=== PATIENT | female | born 1970 ===

== ENCOUNTER 2017-05-11 19:47 | Emergency (ER) | payer MEDICAID ==
[2017-05-11 20:21] VITALS: O2SAT 98; BMI 39.0
[2017-05-11] MEDS ORDERED: Sodium Chloride 0.9% 1,000 ML IV STA (20:41)
--- NOTE | 2017-05-11 20:44 | ED PDOC ---
Arrival/HPI - General Chief Complaint: Flu-like Symptoms Time Seen by Provider: 05/11/17 20:03 Historian: Patient, Family - History of Present Illness Narrative History of Present Illness (Text): you were treated in the ED today for sinus congestion, dry cough, body aches, fever, chills, but otherwise without any nausea/vomiting/headache/dizziness/ difficulty breathing/chest pain/abdomen pain/numbness/tingling/loss of limb function/pain with urination. 05/11/17 22:38 05/11/17 22:40 Time/Duration: Other (6 days) Symptom Onset: Gradual Symptom Course: Unchanged Quality: Aching Severity Level: 2 Activities at Onset: Rest Context: Sitting Past Medical History - Provider Review Nursing Documentation Reviewed: Yes - Travel History Have you recently traveled outside [place] w/in the past 3 mons?: No - Cardiac Hx Cardiac Disorders: No - Pulmonary Hx Respiratory Disorders: Yes Hx Asthma: Yes - Neurological Hx Neurological Disorder: No - HEENT Hx HEENT Disorder: No - Renal Hx Renal Disorder: No - Endocrine/Metabolic Hx Endocrine Disorders: No - Hematological/Oncological Hx Blood Disorders: Yes Hx Anemia: Yes - Integumentary Hx Dermatological Disorder: No - Musculoskeletal/Rheumatological Hx Musculoskeletal Disorders: No - Gastrointestinal Hx Gastrointestinal Disorders: Yes Other/Comment: gastric sleeve sx - Genitourinary/Gynecological Hx Genitourinary Disorders: No - Psychiatric Hx Psychophysiologic Disorder: No Hx Substance Use: No - Surgical History Hx Gastric Bypass Surgery: Yes Family/Social History - Physician Review Nursing Documentation Reviewed: Yes Family/Social History: No Known Family HX Smoking Status: Never Smoked Hx Alcohol Use: No Hx Substance Use: No Allergies/Home Meds Allergies/Adverse Reactions: Allergies iodine Allergy (Verified 05/11/17 20:38) RASH Home Medications: Home Meds Medication Instructions Recorded Confirmed Albuterol 0.083% [Albuterol 3 ml IH PRN PRN 05/11/17 05/11/17 Sulfate 3 Ml] Albuterol HFA [Ventolin HFA 90 2 puff IH [id number] PRN 05/11/17 05/11/17 mcg/actuation (8 g)] Review of Systems - Review of Systems Constitutional: Fevers Eyes: Normal ENT: Rhinorrhea Respiratory: Cough Cardiovascular: Normal Gastrointestinal: Normal Genitourinary Female: Normal Musculoskeletal: Normal Skin: Normal Neurological: Normal Endocrine: Normal Hemo/Lymphatic: Normal Psychiatric: Normal Physical Exam Vital Signs Reviewed: Yes Vital Signs Temp Pulse Resp BP Pulse Ox 05/11/17 22:55 99.4 F 92 H 18 130/72 98 05/11/17 20:52 103 F H 05/11/17 20:13 103.0 F H 106 H 22 147/100 H 98 Temperature: Febrile Blood Pressure: Hypertensive Pulse: Tachycardic Respiratory Rate: Normal Appearance: Positive for: Well-Appearing, Non-Toxic, Comfortable Pain Distress: None Mental Status: Positive for: Alert and Oriented X 3 - Systems Exam Head: Present: Atraumatic, Normocephalic Pupils: Present: PERRL Extroacular Muscles: Present: EOMI Conjunctiva: Present: Normal Ears: Present: Normal Mouth: Present: Moist Mucous Membranes Pharnyx: Present: Normal Nose (External): Present: Atraumatic Nose (Internal): Present: Boggy Neck: Present: Normal Range of Motion Respiratory/Chest: Present: Clear to Auscultation, Good Air Exchange Cardiovascular: Present: Regular Rate and Rhythm Abdomen: No: Tenderness, Distention, Normal Bowel Sounds, Peritoneal Signs, Rebound, Guarding, McBurney's Point Tender, Rovsing's Sign Present, Hernias, Feeding Tubes, Ostomy Tubes, Mass/Organomegaly, Scars, Other Back: Present: Normal Inspection Upper Extremity: Present: Normal Inspection Lower Extremity: Present: Normal Inspection Neurological: Present: GCS=15, CN II-XII Intact, Speech Normal, Motor Func Grossly Intact Skin: Present: Warm, Normal Color Psychiatric: Present: Alert, Oriented x 3, Normal Insight, Normal Concentration Medical Decision Making ED Course and Treatment: you were treated in the ED today for sinus congestion, dry cough, body aches, fever, chills, but otherwise without any nausea/vomiting/headache/dizziness/ difficulty breathing/chest pain/abdomen pain/numbness/tingling/loss of limb function/pain with urination. You were otherwise breathing easily, pink moist lips, smiling and talking with your family easily, good strength/sensation, alert/oriented, walking easily, clear lungs, no abdomen tenderness, pink lips, fever temp 103 and repeat 99.4, initially fast heart rate 106 and repeat 92, stable breathing rate 22 and repeat 18, excellent oxygen level 98% room air, elevated blood pressure 147/100 which we recommend repeat in 2-3 days primary care office to determine further treatment, you have blood tests no infection count 5.8, stable blood level hemoglobin 11/platelets 281, stable chemistry, heart blood test negative, urine test trace sign of infection without pain with urination thus followup with primary care 2-days to get final urine culture to determine further treatment, urine test negative, radiology chest xray mild markings, ECG mildly fast, intravenous fluids, tylenol, toradol, tamiflu done in the ED with improvement, counselled to drink lots of fluids and monitor urine output and thus discharged home with family. 1. Recommend tamiflu as directed for flu infection control. if persistent cough and change in color of sputum start azithromycin as directed for infection control. 2. Recommend tylenol or motrin as directed for fever control. 3. Recommend follow-up primary care 2-3 days to review symptoms, get final urine cultures to determine further treatment, referral to urology for protein in urine to ensure no complications. 4. If any worsening pain, fever, chills, nausea, vomiting, difficulty breathing , numbness, loss of limb function, pain with urination or any medical condition then return to the ED. 05/11/17 22:43 05/11/17 22:44 05/11/17 23:02 05/11/17 23:04 05/11/17 23:09 Reassessment Condition: Re-examined, Improved - Lab Interpretations Lab Results: 05/11/17 20:40 05/11/17 20:40 Lab Results 05/11/17 21:27: Urine Color Light red, Urine Appearance Sl cloudy, Urine pH 6.5 , Ur Specific [place] <= 1.005, Urine Protein 30 H, Urine Glucose (UA) Negative , Urine Ketones 15 H, Urine Blood Large H, Urine Nitrate Negative, Urine Bilirubin Negative, Urine Urobilinogen 0.2, Ur Leukocyte Esterase Trace H, Urine RBC 25 - 30, Urine WBC 2 - 5, Ur Epithelial Cells 6 - 8, Urine Bacteria Mod, Urine Other Uyeast 05/11/17 20:56: Influenza Typ A,B (EIA) Pos for influenza b H 05/11/17 20:40: Sodium 139, Potassium 3.6, Chloride 104, Carbon Dioxide 22, Anion Gap 17, BUN 6 L, Creatinine 0.8, Est GFR ( Amer) > 60, Est GFR (Non -Af Amer) > 60, Random Glucose 107, Calcium 9.5, Magnesium 1.8, Total Bilirubin 0.3, AST 64 H, ALT 39, Alkaline Phosphatase 90, Lactate Dehydrogenase 543, Total Creatine Kinase 875 H, CK-MB (CK-2) 0.4, CK-MB (CK-2) % Cancelled, Troponin I < 0.01, Total Protein 7.6, Albumin 4.0, Globulin 3.6, Albumin/ Globulin Ratio 1.1 05/11/17 20:40: PT 13.3 H, INR 1.16 H, APTT 35.0 05/11/17 20:40: WBC 5.8, RBC 5.12, Hgb 11.5 L, Hct 37.2, MCV 72.7 L, MCH 22.5 L , MCHC 30.9 L, RDW 16.5 H, Plt Count 281, MPV 9.5, Gran % 64.0, Lymph % (Auto) 28.4, [place] % (Auto) 6.7 H, Eos % (Auto) 0.7 L, Baso % (Auto) 0.2, Gran # 3.72, Lymph # (Auto) 1.7, [place] # (Auto) 0.4, Eos # (Auto) 0.0, Baso # (Auto) 0.01 I have reviewed the lab results: Yes - RAD Interpretation Radiology Orders: 05/11/17 20:41 CHEST PORTABLE [RAD] Stat Senior Art Director: ED Physician (cxr mild vascular markings) - EKG Interpretation Interpreted by ED Physician: Yes (sinus tachycardia, flippted t waves avr, v1, iii) Type: 12 lead EKG - Medication Orders Current Medication Orders: Oseltamivir Phosphate (Tamiflu Cap) 75 mg PO BID NERISSA PRN Reason: Protocol Stop: 05/16/17 20:42 Last Admin: 05/11/17 21:00 Dose: 75 mg Discontinued Medications Acetaminophen (Tylenol 325mg Tab) 975 mg PO STAT STA Stop: 05/11/17 20:42 Last Admin: 05/11/17 20:52 Dose: 975 mg MAR Pain/Vitals Document 05/11/17 20:52 AD (Rec: 05/11/17 20:54 AD [email or web address]) Location Pain Location Body Site Generalized Intensity 8 Vitals Temperature (97.6 F-99.6 F) 103 F Temperature Source Oral Sodium Chloride (Sodium Chloride 0.9%) 1,000 mls @ 999 mls/hr IV .Q1H1M STA Stop: 05/11/17 21:41 Last Admin: 05/11/17 20:45 Dose: 999 mls/hr eMAR Start Stop Document 05/11/17 20:45 AD (Rec: 05/11/17 20:55 AD [email or web address]) Intravenous Solution Start Date 05/11/17 Start Time 20:45 Ketorolac Tromethamine (Toradol) 30 mg IVP STAT STA Stop: 05/11/17 22:19 Disposition/Present on Arrival - Present on Arrival Any Indicators Present on Arrival: No History of DVT/PE: No History of Uncontrolled Diabetes: No Urinary Catheter: No History of Decub. Ulcer: No History Surgical Site Infection Following: None - Disposition Have Diagnosis and Disposition been Completed?: Yes Diagnosis: Influenza Disposition Time: 23:10 Patient Plan: Discharge Condition: IMPROVED Discharge Instructions (ExitCare): Flu, Adult (DC) Additional Instructions: you were treated in the ED today for sinus congestion, dry cough, body aches, fever, chills, but otherwise without any nausea/vomiting/headache/dizziness/ difficulty breathing/chest pain/abdomen pain/numbness/tingling/loss of limb function/pain with urination. You were otherwise breathing easily, pink moist lips, smiling and talking with your family easily, good strength/sensation, alert/oriented, walking easily, clear lungs, no abdomen tenderness, pink lips, fever temp 103 and repeat 99.4, initially fast heart rate 106 and repeat 92, stable breathing rate 22 and repeat 18, excellent oxygen level 98% room air, elevated blood pressure 147/100 which we recommend repeat in 2-3 days primary care office to determine further treatment, you have blood tests no infection count 5.8, stable blood level hemoglobin 11/platelets 281, stable chemistry, heart blood test negative, urine test trace sign of infection without pain with urination thus followup with primary care 2-days to get final urine culture to determine further treatment, urine test negative, radiology chest xray mild markings, ECG mildly fast, intravenous fluids, tylenol, toradol, tamiflu done in the ED with improvement, counselled to drink lots of fluids and monitor urine output and thus discharged home with family. 1. Recommend tamiflu as directed for flu infection control. if persistent cough and change in color of sputum start azithromycin as directed for infection control. 2. Recommend tylenol or motrin as directed for fever control. 3. Recommend follow-up primary care 2-3 days to review symptoms, get final urine cultures to determine further treatment, referral to urology for protein in urine to ensure no complications. 4. If any worsening pain, fever, chills, nausea, vomiting, difficulty breathing , numbness, loss of limb function, pain with urination or any medical condition then return to the ED. Prescriptions: Azithromycin [Z-Boni] 250 mg PO DAILY 5 Days #6 tab Oseltamivir [Tamiflu] 75 mg PO DAILY 5 Days #5 cap Referrals: Azucena Burrell MD [Primary Care Provider] - Follow up with primary Forms: [facility] (Turkmen), WORK NOTE
[2017-05-11 20:59] LABS: BASO # 0.01 K/mm3 (0.0-2.0); BASO % 0.2 % (0.0-3.0); EOS % 0.7 % (1.5-5.0); GRAN # 3.72 (1.4-6.5); HEMOGLOBIN 11.5 g/dL (12.0-16.0); LYMPH # 1.7 (1.2-3.4); LYMPH % 28.4 % (22.0-35.0); MEAN CELL VOLUME 72.7 fl (80.0-105.0); MEAN CORPUSCULAR HEMOGLOBIN 22.5 pg (25.0-35.0); MEAN CORPUSCULAR HGB CONC 30.9 g/dl (31.0-37.0); MEAN PLATELET VOLUME 9.5 fl (7.0-11.0); MONO # 0.4 (0.1-0.6); MONO % 6.7 % (1.0-6.0); RBC 5.12 10^6/uL (3.5-6.1); RED CELL DISTRIBUTION WIDTH 16.5 % (11.5-14.5); WHITE BLOOD COUNT 5.8 10^3/ul (4.5-11.0)
[2017-05-11 21:12] LABS: INR 1.16 (0.93-1.08); PROTHROMBIN TIME 13.3 SECONDS (9.4-12.5)
[2017-05-11 21:22] LABS: ALB/GLOB RATIO 1.1 (1.1-1.8); ALT/SGPT 39 U/L (7-56); AST/SGOT 64 U/L (14-36); BLOOD UREA NITROGEN 6 mg/dL (7-21); CALCIUM 9.5 mg/dL (8.4-10.5); GFR AFRICAN-AMERICAN > 60; GFR NON-AFRICAN AMERICAN > 60; MAGNESIUM 1.8 mg/dL (1.7-2.2)
[2017-05-11 21:34] LABS: TROPONIN I < 0.01 ng/mL
[2017-05-11 21:43] LABS: CK-MB 0.4 ng/mL (0.0-3.6)
[2017-05-11 21:54] LABS: PH,URINE 6.5 (4.7-8.0); URINE BILIRUBIN NEGATIVE (NEGATIVE); URINE BLOOD LARGE (NEGATIVE); URINE GLUCOSE (UA) NEGATIVE (NEGATIVE); URINE LEUKOCYTE ESTERASE TRACE Leu/uL (NEGATIVE); URINE NITRATE NEGATIVE (NEGATIVE); URINE PROTEIN 30 mg/dL (<30 mg/dL); URINE UROBILINOGEN 0.2 E.U./dL (<1 E.U./dL)
[2017-05-11 21:57] LABS: URINE APPEARANCE SL CLOUDY (CLEAR); URINE COLOR LIGHT RED (YELLOW)
[2017-05-11 22:01] LABS: URINE BACTERIA MOD (NEG); URINE RBC 25 - 30 /hpf (0-2)
[2017-05-11 22:56] VITALS: BP 130/72; PULSE 92; RESP 18; TEMP 99.4
--- NOTE | 2017-05-12 09:18 | CARD ---
APPROVED REPORT EKG Measurement Heart [id number] 118P5 [id number] <Conclusion> Sinus tachycardia Otherwise normal ECG
--- NOTE | 2017-05-12 10:00 | RAD ---
HISTORY: 47yoF cough COMPARISON: No prior. FINDINGS: LUNGS: No active pulmonary disease. PLEURA: No significant pleural effusion identified, no pneumothorax apparent. CARDIOVASCULAR: Normal. OSSEOUS STRUCTURES: No significant abnormalities. VISUALIZED UPPER ABDOMEN: Normal. OTHER FINDINGS: None. IMPRESSION: No active disease.
== END 2017-05-11 23:35 | disposition home or self-care (01) ==
LOC: ED 19:47
DX: J11.1 Influenza due to unidentified influenza virus with other respiratory manifestations (principal)
CPT/HCPCS: 71045; 80053; 81001; 82550; 82553; 83615; 83735; 84484; 85025; 85610; 85730; 87040; 87086; 87804; 93005; 96374; 99284; J1885; J7040